=== PATIENT | female | born 1950 | race Caucasian/White ===

== ENCOUNTER → 2020-08-12 | Day surgery (SDC) | payer OTHER, MEDICARE ==
[~2020-08-12] MED LIST: ASPIRIN EC81 MG PO; DUONEB 2.5-0.5M1 AMP INH; FLUOXETINE HCL40 MG PO; FOLIC ACID1 M1 PO; LOSARTAN POTASS50 MG PO; METHOTREXATE2.5 MG PO; MONTELUKAST SOD10 MG PO; PROVENTIL HFA6.7 GM INH; SYMBICORT 80-10.2 GM INH; TRAMADOL HCL50 MG PO; VITAMIN D210 MCG PO
[2020-08-12 09:01] LABS: HCT 33.5 % (37.0-47.0); HGB 11.1 g/dl (12.5-16.0); MCH 31.1 pg (25.0-31.0); MCHC 33.1 g/dL (32.0-36.0); MCV 93.8 fL (78.0-100.0); MPV 8.7 fL (6.0-9.5); RBC 3.57 M/uL (4.20-5.40); RDW 16.2 % (11.5-14.0); WBC 4.8 K/uL (4.0-10.5)
[2020-08-12 09:28] LABS: ALBUMIN 3.8 g/dL (3.4-5.0); BILIRUBIN - TOTAL 1.1 mg/dL (0.2-1.0); BUN/CREAT RATIO (CALC) 12.9 RATIO; CREATININE 0.85 mg/dL (0.51-0.95); GLOBULIN (CALCULATION) 3.2 g/dL; POTASSIUM 4.3 mmol/L (3.5-5.1)
== END | disposition home or self-care (01) ==
LOC: FAS 08:15
PROVIDERS: Surgery
DX: K58.9 Irritable bowel syndrome, unspecified (principal); J44.9 Chronic obstructive pulmonary disease, unspecified; F32.9 Major depressive disorder, single episode, unspecified; I10 Essential (primary) hypertension; E78.5 Hyperlipidemia, unspecified; Z88.0 Allergy status to penicillin; Z88.2 Allergy status to sulfonamides; Z79.899 Other long term (current) drug therapy; Z86.2 Personal history of diseases of the blood and blood-forming organs and certain disorders involving the immune mechanism; Z87.19 Personal history of other diseases of the digestive system; Z90.49 Acquired absence of other specified parts of digestive tract; Z90.710 Acquired absence of both cervix and uterus; Z98.1 Arthrodesis status; Z82.49 Family history of ischemic heart disease and other diseases of the circulatory system; Z87.09 Personal history of other diseases of the respiratory system; Z20.822 Contact with and (suspected) exposure to COVID-19; Z53.8 Procedure and treatment not carried out for other reasons
CPT/HCPCS: 36415; 80053; J1610; J2704; J7120

== ENCOUNTER 2020-11-06 17:06 | Emergency (ER) | payer OTHER, MEDICARE | END 2020-11-06 21:08 | disposition home or self-care (01) | LOC: FER 17:06 | DX: S20.212A Contusion of left front wall of thorax, initial encounter (principal); W18.2XXA Fall in (into) shower or empty bathtub, initial encounter; Y92.002 Bathroom of unspecified non-institutional (private) residence as the place of occurrence of the external cause; Z88.0 Allergy status to penicillin; Z88.2 Allergy status to sulfonamides | CPT/HCPCS: 71101 ==